=== PATIENT | male | born 1990 | race Caucasian/White ===

== ENCOUNTER 2016-12-22 12:23 | Emergency (ER) | payer SELFPAY ==
[2016-12-22 13:39] VITALS: BP 137/74
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
[2016-12-22 15:11] LABS: Hematocrit 47.2 % (35.5-45.6); Hemoglobin 14.8 gm/dl (11.8-15.2); Mean Corpuscular HGB Conc 31 % (32-34); Mean Corpuscular Hemoglobin 28 pg (28-32); Mean Corpuscular Volume 89 fl (84-94); Platelet Count 187 K/mm3 (140-440); Red Cell Distribution Width 13.4 % (13.2-15.2); White Blood Count 12.8 K/mm3 (4.5-11.0)
[2016-12-22 15:21] LABS: Basophils % (Auto) 0.1 % (0.0-1.8)
== END 2016-12-22 16:47 | disposition left against medical advice (07) ==
LOC: ED 12:23
DX: R10.9 Unspecified abdominal pain (principal); R11.2 Nausea with vomiting, unspecified; R19.7 Diarrhea, unspecified; Z53.21 Procedure and treatment not carried out due to patient leaving prior to being seen by health care provider
CPT/HCPCS: 36415; 85025